=== PATIENT | male | born 1965 | race American Indian/Alaskan Native ===

== ENCOUNTER 2018-12-12 23:47 | Observation (INO) | payer BC ==
--- NOTE | 2018-12-13 00:16 | EDM.PDOC ---
ED HPI GENERAL MEDICAL PROBLEM - General Chief Complaint: Abdominal Pain Stated Complaint: Abdominal pain Time Seen by Provider: 12/12/18 23:55 Source of Information: Reports: Patient History Limitations: Reports: No Limitations - History of Present Illness INITIAL COMMENTS - FREE TEXT/NARRATIVE: 53 YO WM s/p CABG x 3 followed by carotid endarterectomy 2 days later who was discharged from [facility] on 12/08/2018. Pt reports he has been getting by fairly well but has had difficulty moving his bowels since surgery. Pt reports he's been having abdominal pain/bloating which has been intermittent and relieved by passing gas or belching. Pt states tonight the pain got so severe he felt short of breath prompting EMS call and ER evaluation. Pt denies chest pain, vomiting, fever/chills. Pt is sitting up at bedside and states he has no pain, or shortness of breath at this time, but feels discomfort when moving around. Duration: Day(s): (5) Location: Reports: Abdomen Quality: Reports: Ache Severity: Moderate Improves with: Reports: None Worsens with: Reports: None Associated Symptoms: Reports: Loss of Appetite, Shortness of Breath. Denies: Confusion, Chest Pain, Cough, cough w sputum, Diaphoresis, Fever/Chills, Headaches, Nausea/Vomiting, Rash, Seizure, Syncope, Weakness - Related Data Allergies Allergy/AdvReac Type Severity Reaction Status Date / Time lisinopril Allergy Hypotension Uncoded 12/12/18 23:54 losatan Allergy Hypotension Uncoded 12/12/18 23:54 Home Meds: Home Meds Chlorthalidone 25 mg PO DAILY #30 tab 12/12/13 [Rx] traMADol [Ultram] 50 mg PO DAILY 12/12/13 [History] ED ROS GENERAL - Review of Systems Review Of Systems: See Below Constitutional: Reports: No Symptoms HEENT: Reports: No Symptoms Respiratory: Reports: Shortness of Breath Cardiovascular: Reports: No Symptoms Endocrine: Reports: No Symptoms GI/Abdominal: Reports: Abdominal Pain, Constipation : Reports: No Symptoms Musculoskeletal: Reports: No Symptoms Skin: Reports: No Symptoms Neurological: Reports: No Symptoms Psychiatric: Reports: No Symptoms Hematologic/Lymphatic: Reports: No Symptoms Immunologic: Reports: No Symptoms ED EXAM, GI/ABD - Physical Exam Exam: See Below Exam Limited By: No Limitations General Appearance: Alert, WD/WN, No Apparent Distress Throat/Mouth: Normal Inspection, Normal Lips, Normal Teeth, Normal Gums, Normal Oropharynx, Normal Voice, No Airway Compromise Head: Atraumatic, Normocephalic Neck: Normal Inspection, Supple, Non-Tender, Full Range of Motion Respiratory/Chest: No Respiratory Distress, Lungs Clear, Normal Breath Sounds, No Accessory Muscle Use, Chest Non-Tender Cardiovascular: Normal Peripheral Pulses, Regular Rate, Rhythm, No Edema, No Gallop, No JVD, No Rub, Systolic Murmur GI/Abdominal Exam: Normal Bowel Sounds, No Organomegaly, No Abnormal Bruit, No Mass, Pelvis Stable, Distended. No: Soft, Non-Tender Back Exam: Normal Inspection, Full Range of Motion, NT Extremities: Normal Inspection, Normal Range of Motion, Non-Tender, Normal Capillary Refill, No Pedal Edema Neurological: Alert, Oriented, CN II-XII Intact, Normal Cognition, Normal Gait, Normal Reflexes, No Motor/Sensory Deficits Psychiatric: Normal Affect, Normal Mood Skin Exam: Warm, Dry, Intact, Normal Color, No Rash Lymphatic: No Adenopathy Course - Orders/Labs/Meds Orders: Active Orders 24 hr Category Date Time Status Abdomen Series w Chest 1V [CR] Stat Exams 12/13/18 00:00 Ordered Chest 1V Frontal [CR] Stat Exams 12/13/18 00:00 Stop Req Labs: Laboratory Tests 12/13/18 12/13/18 Range/Units 00:10 00:10 WBC 8.95 (5.00-10.00) 10^3/uL RBC 3.11 L (4.50-6.00) 10^6/uL Hgb 10.1 L (13.0-17.0) g/dL Hct 28.8 L (40.0-52.0) % MCV 92.6 H (82.0-92.0) fL MCH 32.5 H (27.0-31.0) pg MCHC 35.1 (32.0-36.0) g/dL RDW 13.3 (11.5-14.5) % Plt Count 600 H (150-400) 10^3/uL MPV 9.0 (7.4-10.4) fL Immature Gran % (Auto) 1.0 (0.0-5.0) % Neut % (Auto) 68.3 (50.0-70.0) % Lymph % (Auto) 18.0 L (20.0-40.0) % [place] % (Auto) 7.8 (2.0-8.0) % Eos % (Auto) 4.0 H (1.0-3.0) % Baso % (Auto) 0.9 (0.0-1.0) % Immature Gran # (Auto) 0.09 (0.00-0.50) 10^3/uL Neut # (Auto) 6.11 (2.50-7.00) 10^3/uL Lymph # (Auto) 1.61 (1.00-4.00) 10^3/uL [place] # (Auto) 0.70 (0.10-0.80) 10^3/uL Eos # (Auto) 0.36 H (0.10-0.30) 10^3/uL Baso # (Auto) 0.08 (0.00-0.10) 10^3/uL Sodium 136 (136-145) mmol/L Potassium 4.8 (3.3-5.3) mmol/L Chloride 101 (98-115) mmol/L Carbon Dioxide 24.0 (21.0-32.0) mmol/L Anion Gap 15.8 H (5-15) mmol/L BUN 15 (6-25) mg/dL Creatinine 0.93 (0.51-1.17) mg/dL Est Cr Clr Drug Dosing 92.67 mL/min Estimated GFR (MDRD) > 60 mL/min Glucose 112 H (75 - 99) mg/dL Calcium 9.5 (8.7-10.3) mg/dL Total Bilirubin 0.4 (0.2-1.0) mg/dL AST 49 H (15-37) U/L ALT 96 H (12-78) U/L Alkaline Phosphatase 138 H (46-116) IU/L Total Protein 7.8 (6.4-8.2) g/dL Albumin 3.12 (3.00-4.80) g/dL Lipase 43 L (73-393) U/L - Radiology Interpretation Free Text/Narrative:: AAS with 1 view chest- nonspecific bowel gas pattern- large amount of gas and stool without evidence of bowel obstruction Departure - Departure Time of Disposition: 01:06 Disposition: Refer to Observation Condition: Fair Clinical Impression: Obstipation Abdominal pain Qualifiers: Abdominal location: generalized Qualified Code(s): R10.84 - Generalized abdominal pain - Discharge Information Referrals: PCP,Unknown [Primary Care Provider] - Forms: ED Department Discharge - My Orders Last 24 Hours: My Active Orders 12/13/18 00:00 Abdomen Series w Chest 1V [CR] Stat Chest 1V Frontal [CR] Stat - Assessment/Plan Last 24 Hours: My Active Orders 12/13/18 00:00 Abdomen Series w Chest 1V [CR] Stat Chest 1V Frontal [CR] Stat Assessment:: 1. Abdominal pain 2. obstipation Plan: 1. admit for observation- Tod Brower 2. fleets x 2 3. simethicone 160mg Q6 4. reglan 10mg IV Q6 5. reaccess in am 6. colace 100mg PO BID
[2018-12-13 00:35] LABS: ANION GAP 15.8 mmol/L (5-15); CHLORIDE,CL 101 mmol/L (98-115); SODIUM,NA 136 mmol/L (136-145)
[2018-12-13] MEDS ORDERED: LORazepam 2 MG/ML SDV IVPUSH ONE (00:44)
[2018-12-13] MEDS ORDERED: Simethicone 80 MG Tab.Chew PO ONE (00:44)
[2018-12-13] MEDS ORDERED: Sodium Phosphate,Monobasic/Sodium Phosphate,Dibasic Enema 133 ML Bottle RECTAL ONE ×2 (00:44→01:04)
[2018-12-13] MEDS ORDERED: Metoclopramide 10 MG/2 ML SDV IVPUSH ONE (01:04)
[2018-12-13] MEDS ORDERED: Docusate Sodium 100 MG Cap PO PRN (01:08)
[2018-12-13] MEDS: Sodium Chloride 0.9% 10 ML Syringe FLUSH PRN ×3 (01:19→21:33)
[2018-12-13] MEDS: Metoclopramide 10 MG/2 ML SDV IVPUSH SCH ×4 (04:35→18:35)
[2018-12-13] MEDS: Simethicone 80 MG Tab.Chew PO SCH ×4 (05:10→23:03)
--- NOTE | 2018-12-13 07:47 | CR ---
[id number] RAD/RAD Abdomen 3V Exam: RAD Abdomen 3V Clinical Data: ABDOMINAL PAIN RECENT HEART SURGERY DIFFICULTY BREATHING COMPARISON: CORRELATION IS MADE WITH THE EXAM OF 2018 FINDINGS: There is mild discoid atelectasis at the left lung base There is no free air under the diaphragm The lungs are otherwise clear The cardiomediastinal contour is stable There is a mild ileus There is no organomegaly or pathologic calcification IMPRESSION: MILD ILEUS MILD VOLUME LOSS AT LEFT LUNG BASE Addison Ferguson MD 12/13/18 0746 Thank you for allowing us to participate in the care of your patient.
[2018-12-13] MEDS ORDERED: Nitroglycerin 0.4 MG Tab.SL SL PRN (09:11)
[2018-12-13] MEDS ORDERED: Ketorolac 30 MG/ML SDV IVPUSH PRN (09:14)
[2018-12-13] MEDS ORDERED: methylPREDNISolone Sodium Succinate 125 MG/2 ML SDV IVPUSH ONE (09:15)
[2018-12-13] MEDS ORDERED: traMADol 50 MG Tab PO PRN (09:27)
[2018-12-13] MEDS: Pantoprazole 40 MG Vial IVPUSH SCH (10:17)
[2018-12-13] MEDS: traMADol 50 MG Tab PO SCH (10:21)
[2018-12-13] MEDS: Aspirin 81 MG Tab.EC PO SCH (10:22)
[2018-12-13] MEDS: Clopidogrel 75 MG Tab PO SCH (10:22)
[2018-12-13] MEDS: Metoprolol Tartrate 25 MG Tab PO SCH (10:23)
[2018-12-13] MEDS: Albuterol/Ipratropium 3.0-0.5 MG/3 ML Neb Soln NEB SCH ×3 (10:56→23:04)
--- NOTE | 2018-12-13 11:59 | HP ---
HISTORY OF PRESENT ILLNESS: This is a 53-year-old white male, who recently was down at the [facility] in [place], [place]. They did a workup on him and found that he had coronary artery disease along with a carotid arterial disease. He underwent a CABG x3 approximately about a week and a half ago, and after surgery, he was dizzy and having a hard time walking after his CABG. So, 2 days later, he had the CABG on , which would have been 12/02/2018 and they tried to get him out of bed on 12/03/2018, and he was having difficulty, so then he went back to surgery on 12/04/2018, which was Thursday and had a carotid endarterectomy performed on the right side. The patient states that he was doing much better after carotid endarterectomy. Thursday, Thursday, Thursday they had gotten him out of bed, walked him and he was feeling fine. He was finally discharged on the 12/08/2018. He went home and he started having severe abdominal pain and bloating. He denied any nausea or vomiting, but he was feeling very gassy, passed a lot of gas and belching. He states he did not have a bowel movement since his surgery. He states that last night he started feeling short of breath like it was hard to get air in. So, he called the EMS services and he was brought to the emergency room for further evaluation at that time. The patient denies any chest pain, any fever or chills. He just says that his abdomen is really bloated and hurts. He does feel short of breath. The patient did smoke cigarettes for greater than 20 years. He did quit recently. PAST MEDICAL HISTORY: He has history of COPD, hyperlipidemia, used to be a smoker. PAST SURGICAL HISTORY: Recent CABG and carotid endarterectomy. MEDICATIONS: He was taking at home after he was [facility] [place]. They have put him on some Tylenol 1000 mg every 6 hours as needed for pain, Pravachol 10 mg daily, aspirin 81 mg daily, Pepcid 20 mg twice a day, Plavix 75 mg daily, nitroglycerin tablets as needed, metoprolol tartrate 6.25 mg daily, and tramadol 50 mg daily. ALLERGIES: He is allergic to lisinopril and losartan. SOCIAL/PERSONAL HISTORY: The patient does live in [place] with his . He denies any smoking or alcohol use recently. REVIEW OF SYSTEMS: CONSTITUTIONAL: No weight loss. No fever. No chills. No night sweats. Appetite is good. No fatigue. EYES: No recent visual changes. ENT: No sinus congestion or hoarseness. CARDIOVASCULAR: No chest pain or palpitations. RESPIRATORY: He has no cough, but he does feel short of breath and slight wheeze in his chest, hard to get air in, hard to take a deep breath. GI: He feels very bloated. He has lots of abdominal pain throughout the entire abdominal cavity. He says waxes and wanes depending on if can belch or not. : No dysuria or hematuria. MUSCULOSKELETAL: No new bone pain or joint swelling. INTEGUMENTARY: No rash or pruritus. NEUROLOGIC/PSYCHIATRIC: No recent headache or focal weakness. No depressive symptoms. ENDOCRINE: No heat or cold intolerances or polydipsia. HEMATOLOGIC/LYMPHATIC: No excessive bruising or lymph node swelling. ALLERGIC/IMMUNOLOGIC: No hives or recurrent infections. PHYSICAL EXAMINATION: GENERAL: This is a white male, 53 years of age, in no acute distress. He is in somewhat pain at this time. VITAL SIGNS: His weight is 163 pounds. Temperature is 98.3, pulse is 98, blood pressure is 128/78, respiratory rate is 24, oxygen saturation on room air is 95%. HEENT: Head is normocephalic. EOMs are intact. Pupils are equal, round, and reactive to light and accommodation. Bilateral tympanic membranes are intact. Nose is clear. No pharyngeal erythema noted. NECK: Supple. No JVD. Trachea midline. LUNGS: Sounds, he has inspiratory wheezing. He has decreased sounds to the left lower base. No cough noted. CARDIAC: Heart tones are regular rate and rhythm. No murmurs identified. ABDOMEN: Somewhat firm, somewhat distended, but his bowel sounds are very hyperactive at this time, tender with any palpation. EXTREMITIES: Full range of motion. No joint effusions noted. NEUROLOGIC: Grossly intact. DIAGNOSTIC: The patient's lab work in the ER, CBC showed a white count within normal range at 8.9, hemoglobin is slightly low at 10.1, platelet count 600. Chemistry panel is unremarkable except for his AST is 49, ALT is 96, and his alkaline phosphatase is 138, lipase is low at 43. Otherwise, everything was unremarkable. The patient's chest x-ray and abdominal x-ray that were obtained in the emergency room, the report reads mild discoid atelectasis at left lung base. There is no free air under the diaphragm. The lungs are otherwise clear. The cardiomediastinal contour is stable. There is a mild ileus. There is no organomegaly or pathologic clarification. Impression is mild ileus. Mild volume loss at the left lung base as per Dr. Ferguson in Radiology. IMPRESSION/PLAN: 1. Ileus secondary to recent surgery of Coronary artery bypass grafting and carotid endarterectomy. Plan: We are going to continue the patient, we had started him on Reglan 10 mg IV every 6 hours along with simethicone 160 mg scheduled every 6 hours. We are going to get him up and walk him today. He can have a clear liquid diet at this time. I am going to give him Protonix 40 mg IV. He does have active bowel sounds. We will see how he does. 2. Shortness of breath secondary to chronic obstructive pulmonary disease and pressure on his diaphragm from the bloating. Plan: The patient is wheezing. He has inspiratory wheezes throughout his lung pompa. I did give a one time dose of Solu-Medrol 40 mg IV. We are going to start him on some DuoNeb every 6 hours scheduled. He does have some atelectasis at the left lower lung base. I am going to start an incentive spirometer every 1 hour while awake. The patient states that he did smoke for greater than 20 years. He recently has quit smoking. Oxygen as needed. 3. Pain secondary to surgeries. Plan: We will continue with the Tylenol. He can take 1 g every 6 hours as needed. He did get 50 mg of tramadol this morning, which was scheduled. He can have that every 8 hours as needed for severe abdominal pain. 4. Status post coronary artery bypass grafting and carotid endarterectomy on the 12/02/2018 and 12/04/2018. Plan: We will continue with the medications. He was discharged on, I had him on lipid-lowering medication and Pravachol 10 mg daily, aspirin 81 mg daily, Plavix 75 mg daily along with beta-lila and metoprolol tartrate 6.25 mg daily. If he has any chest pain, he does have some Nitrostat ordered p.r.n. Overall plan: if the patient is doing better this afternoon, he is passing gas and his abdominal pain is relieved and he is moving his bowels, we may either discharge him later this evening or tomorrow morning. /[id number]/MODL MTDD
[2018-12-13] MEDS ORDERED: Pravastatin 20 MG Tab PO SCH (21:00)
[2018-12-13] MEDS: Acetaminophen 500 MG Tab PO PRN (21:36)
[2018-12-14] MEDS: Sodium Chloride 0.9% 10 ML Syringe FLUSH PRN (01:51)
[2018-12-14] MEDS: Metoclopramide 10 MG/2 ML SDV IVPUSH SCH ×3 (01:51→14:00)
[2018-12-14] MEDS: Simethicone 80 MG Tab.Chew PO SCH ×3 (05:41→18:19)
[2018-12-14] MEDS: Albuterol/Ipratropium 3.0-0.5 MG/3 ML Neb Soln NEB SCH ×3 (05:44→18:19)
[2018-12-14] MEDS: Aspirin 81 MG Tab.EC PO SCH (08:00)
[2018-12-14] MEDS: Pantoprazole 40 MG Vial IVPUSH SCH (08:01)
[2018-12-14] MEDS: Metoprolol Tartrate 25 MG Tab PO SCH (08:01)
[2018-12-14] MEDS: Clopidogrel 75 MG Tab PO SCH (08:01)
[2018-12-14] MEDS: traMADol 50 MG Tab PO SCH (09:17)
--- NOTE | 2018-12-14 10:37 | PCM.DCSUM1 ---
Discharge Summary - Hospital Course Diagnosis: Stroke: No - Discharge Data Discharge Date: 12/14/18 Discharge Disposition: Home, Self-Care 01 Condition: Good - Referral to Home Health Primary Care Physician: Marina Griggs MD - Patient Instructions Diet: Usual Diet as Tolerated, Drink 8-10+ Glasses/Day Activity: As Tolerated, Cough & Deep Breathe Driving: May Drive Today Showering/Bathing: May Shower Notify Provider of: Fever, Increased Pain, Nausea and/or Vomiting (report shortness of breath) - Discharge Plan *PRESCRIPTION DRUG MONITORING PROGRAM REVIEWED*: No *COPY OF PRESCRIPTION DRUG MONITORING REPORT IN PATIENT MESSI: No Prescriptions/Med Rec: Sennosides/Docusate Sodium [Senna-S] 1 each PO DAILY #20 tablet Home Medications: Home Meds traMADol [Ultram] 50 mg PO DAILY 12/12/13 [History] Acetaminophen 1,000 mg PO Q6HR PRN 12/13/18 [History] Aspirin [Halfprin] 81 mg PO DAILY 12/13/18 [History] Clopidogrel Bisulfate [Clopidogrel] 75 mg PO DAILY 12/13/18 [History] Famotidine 20 mg PO BID 12/13/18 [History] Metoprolol Tartrate 6.25 mg PO DAILY 12/13/18 [History] Nitroglycerin 0.4 mg SL ASDIRECTED PRN MDD 3 12/13/18 [History] Pravastatin Sodium 10 mg PO BEDTIME 12/13/18 [History] Sennosides/Docusate Sodium [Senna-S] 1 each PO DAILY #20 tablet 12/14/18 [Rx] Forms: ED Department Discharge Referrals: PCP,Unknown [Ordering Only Provider] - - Discharge Summary/Plan Comment DC Time >30 min.: Yes Discharge Summary/Plan Comment: final diagnosis Ileus, S/P CABG with carotid endarterectomy COPD, clinical, unstaged monocytosis, reactive Anemia, macrocytic, no anisocytosis history summary 53 YO WM s/p CABG x 3 followed by carotid endarterectomy 2 days later who was discharged from [facility] on 12/08/2018. Pt reported he had been doing well however started having difficulty moving his bowels since surgery December 02. He c/o abdominal pain/bloating which has been intermittent and relieved by passing gas or belching. ON admission he had pain right severe accompanying prompting EMS call and ER evaluation. on arrival he had no chest pain, vomiting, fever/chills. he recently quit smoking hospital course Went fairly abdominal x-rays did show significant bowel dilatation is placed on Reglan, he started passing gas and feeling much better. He tolerated an advanced diet. He ambulated in the halls quite aggressively. Hyperactive bowel sounds on admission however they did slow down. He did have shortness of breath requiring oxygen, given Solu-Medrol 1 along with Duo Neb tx q6hr which greatly improved however he did have decreased breath sounds on his left side the day of discharge.he was given senna-S along with pro-kinetic Reglan. he did have mild ALT AST elevation, sodium-potassium BUN/creatinine were normal upon discharge. alkaline phosphatase slightly elevated at 138, normal lipase, No neutrophilia medication changes/adjustments upon discharge Senna-S 1 tablet daily--constipation, opiod use continue all other home medications Discharge Patient will be discharged home self-care, he will f/u with primary care provider Recommendations at follow-up --Strong candidate for added PCS-K9 (Repatha) educated patient on med, --Consider high dose statin --educated patient regarding ongoing smoking cessation - General Info Functional Status: Reports: Pain Controlled, Tolerating Diet, Ambulating, Urinating, Incentive Spirometry, Other (still has mild left lower quadrant chest wall pain, producible on). Denies: New Symptoms - Review of Systems General: Denies: Fever, Weakness, Fatigue, Malaise, Chills HEENT: Reports: No Symptoms Pulmonary: Reports: Pleuritic Chest Pain. Denies: Shortness of Breath, Sputum, Hemoptysis, Wheezing Cardiovascular: Denies: Chest Pain, Palpitations, Dyspnea on Exertion, Orthopnea , Lightheadedness Gastrointestinal: Reports: Constipation. Denies: Abdominal Pain, Decreased Appetite, Diarrhea, Nausea, Vomiting Genitourinary: Reports: No Symptoms Musculoskeletal: Reports: Shoulder Pain Skin: Reports: No Symptoms Neurological: Denies: Confusion - Patient Data Vitals - Most Recent: Last Vital Signs Temp 97.3 F 12/14/18 06:39 Pulse 89 12/14/18 08:01 Resp 14 12/14/18 06:39 BP 111/73 12/14/18 08:01 Pulse Ox 95 12/14/18 06:39 Weight - Most Recent: 163 lb I&O - Last 24 hours: Intake & Output 12/13/18 12/14/18 12/14/18 22:59 06:59 14:59 Intake Total 850 300 Balance 850 300 THEODORE Results - Last 24 hrs: Microbiology 12/13/18 02:30 Gram Stain - Final Wound - Thigh, Right 12/13/18 02:30 Gram Stain - Final Wound - Chest Med Orders - Current: Current Medications Acetaminophen (Tylenol Extra Strength) 1,000 mg PO Q6HR PRN PRN Reason: Pain Last Admin: 12/13/18 21:36 Dose: 1,000 mg Albuterol/Ipratropium (Duoneb 3.0-0.5 Mg/3 Ml) 3 ml NEB Q6HRRT [facility] Last Admin: 12/14/18 05:44 Dose: 3 ml Aspirin (Halfprin) 81 mg PO DAILY [facility] Last Admin: 12/14/18 08:00 Dose: 81 mg Clopidogrel Bisulfate (Plavix) 75 mg PO DAILY [facility] Last Admin: 12/14/18 08:01 Dose: 75 mg Metoclopramide HCl (Reglan) 10 mg IVPUSH Q6H [facility] Last Admin: 12/14/18 07:56 Dose: 10 mg Metoprolol Tartrate (Lopressor) 6.25 mg PO DAILY [facility] Last Admin: 12/14/18 08:01 Dose: 6.25 mg Nitroglycerin (Nitrostat) 0.4 mg SL ASDIRECTED PRN PRN Reason: Chest Pain Pantoprazole Sodium (Protonix Iv) 40 mg IVPUSH DAILY [facility] Last Admin: 12/14/18 08:01 Dose: 40 mg Pravastatin Sodium (Pravachol) 10 mg PO BEDTIME [facility] Last Admin: 12/13/18 22:58 Dose: Not Given Simethicone (Simethicone) 160 mg PO Q6HR [facility] Last Admin: 12/14/18 05:41 Dose: 160 mg Sodium Chloride (Saline Flush) 10 ml FLUSH Q8HR PRN PRN Reason: keep vein open Last Admin: 12/14/18 01:51 Dose: 10 ml Tramadol HCl (Ultram) 50 mg PO DAILY [facility] Last Admin: 12/14/18 09:17 Dose: Not Given Tramadol HCl (Ultram) 50 mg PO Q8H PRN PRN Reason: Abdominal Pain Discontinued Medications Docusate Sodium (Colace) 100 mg PO BID PRN PRN Reason: Constipation Last Admin: 12/13/18 05:11 Dose: 100 mg Ketorolac Tromethamine (Toradol) 30 mg IVPUSH Q8H PRN PRN Reason: Pain (severe 7-10) Stop: 12/18/18 09:14 Lorazepam (Ativan) 1 mg IVPUSH ONETIME ONE Stop: 12/13/18 00:45 Last Admin: 12/13/18 01:17 Dose: 1 mg Methylprednisolone Sodium Succinate (Solu-Medrol) 40 mg IVPUSH ONETIME ONE Stop: 12/13/18 09:16 Last Admin: 12/13/18 10:17 Dose: 40 mg Metoclopramide HCl (Reglan) 10 mg IVPUSH ONETIME ONE Stop: 12/13/18 01:05 Last Admin: 12/13/18 01:29 Dose: 10 mg Simethicone (Simethicone) 160 mg PO ONETIME ONE Stop: 12/13/18 00:45 Last Admin: 12/13/18 01:00 Dose: 160 mg Sodium Biphosphate/Sodium Phosphate (Fleet Enema) 133 ml RECTAL ONETIME ONE Stop: 12/13/18 00:45 Last Admin: 12/13/18 01:34 Dose: 133 ml Sodium Biphosphate/Sodium Phosphate (Fleet Enema) 133 ml RECTAL ONETIME ONE Stop: 12/13/18 01:05 Last Admin: 12/13/18 02:10 Dose: 133 ml - Exam Quality Assessment: Denies: Supplemental Oxygen General: Reports: Alert, Oriented Neck: Reports: Supple Lungs: Reports: Decreased Breath Sounds (decreased breath sounds left side posterior) Cardiovascular: Reports: Regular Rate, Regular Rhythm GI/Abdominal Exam: Soft, Non-Tender, No Organomegaly, No Distention, Other (low but activ tones). No: Distended (Male) Exam: Deferred
--- NOTE | 2018-12-14 14:04 | CR ---
[id number] RAD/RAD Chest PA And Lateral EXAM: RAD Chest PA And Lateral INDICATION: UPPER LEFT ABDOMEN PAIN, LEFT LOWER LOBE ATELECTASIS. COMPARISON: December 04, 2018. DISCUSSION: Improved aeration of left lung base compared to prior examination with a small amount residual atelectasis. Right lung is clear. No evidence of fluid retention in the chest. Cardiomediastinal silhouette is stable in size and contour. IMPRESSION: Improved aeration of the left lung base since the prior examination. Dom Boyd MD 12/14/18 140 Thank you for allowing us to participate in the care of your patient.
[2018-12-14] MEDS: Acetaminophen 500 MG Tab PO PRN (14:53)
== END 2018-12-14 18:06 | disposition home or self-care (01) ==
LOC: KA.ED 23:47 → KA.MS 12-13 01:10
PROVIDERS: ADMIT Physician Assistant; ATTEND Physician Assistant
DX: K91.89 Other postprocedural complications and disorders of digestive system (principal); K56.7 Ileus, unspecified; J44.9 Chronic obstructive pulmonary disease, unspecified; D72.821 Monocytosis (symptomatic); D53.9 Nutritional anemia, unspecified; I25.10 Atherosclerotic heart disease of native coronary artery without angina pectoris; E78.5 Hyperlipidemia, unspecified; G89.18 Other acute postprocedural pain; Z88.8 Allergy status to other drugs, medicaments and biological substances; Z95.1 Presence of aortocoronary bypass graft; Z87.891 Personal history of nicotine dependence; Z79.899 Other long term (current) drug therapy; Z79.891 Long term (current) use of opiate analgesic
CPT/HCPCS: 71046; 74022; 80053; 83690; 85025; 87070; 87205; 94640; 96374; 96375; 96376; 99285-25; A9270-GY; C9113; G0378; J2060; J2765; J2930; J7620-GY